=== PATIENT | female | born 1990 | race Caucasian/White ===

== ENCOUNTER → 2024-09-10 | Outpatient (CLI) | payer OTHER, SELFPAY ==
--- NOTE | 2024-09-10 11:51 | NM_ITS ---
NUCLEAR MEDICINE GASTRIC EXAM-WITH (SULFUR COLLOID) CLINICAL: Female, 34 years old. nausea, Sjogren''s disease, gerd -- back pain TECHNIQUE: The patient was orally administered 1 mCi of Tc-sulfur colloid in old. Gamma camera imaging acquisitions at 1-60 minutes post radiopharmaceutical administration was performed. COMPARISON STUDIES : NM - None. CR - Not available for review at this time. CT - Not available for review at this time. MR - Not available for review at this time. US - Not available for review at this time. FINDINGS: There is normal filling and emptying of the stomach. Gastric emptying time with solids: Greater than 60 minutes with less than 50% gastric emptying, which is abnormal. Persistence of radiotracer in the cardia and fundus of the stomach and delayed excretion and transit to the distal stomach (lag time) and into the small bowel. Abnormal gastric emptying curves also demonstrated over the entirety of the exam. Near flat lining of gastric emptying. NM/Gastric Emptying Study IMPRESSION: 1. Markedly delayed gastric emptying. Gastric emptying references: * A normal gastric emptying time (T1/2) is usually between 50 and 90 minutes. T1/2 is the time it takes for half of the food in your stomach to empty. * The lag phase is the delay before activity appears in the bowel. With solid meals, there is normally an initial lag phase during which time little or no gastric emptying is observed. The lag phase represents the time required for the transfer of solid food from the fundus to the antrum and then for the antrum to grind the food into small particles so that it can begin to empty into the duodenum [12]. * Causes of delayed gastric emptying = mechanical obstruction, gastroparesis, neuropathy, neuromuscular disease, autoimmune or connective tissue diseases, certain drugs, and post gastric surgical conditions or idiopathic. Electronically Signed: Lg Johnson MD at 11:57 EDT ,
== END | disposition home or self-care (01) ==
PROVIDERS: Referring Provider Student in an Organized Health Care Education/Training Program; Visit Provider Student in an Organized Health Care Education/Training Program
DX: R11.0 Nausea (principal)
CPT/HCPCS: 78264; A9541

== ENCOUNTER → 2024-10-01 | Outpatient (CLI) | payer OTHER, SELFPAY ==
[2024-10-04 12:08] LABS: Anti-Centromere B Ab <0.2 AI (0.0-0.9); Anti-Chromatin <0.2 AI (0.0-0.9); Anti-Jo <0.2 AI (0.0-0.9); Anti-Scleroderma-70 AB 4.2 AI (0.0-0.9); Anti-dsDNA Ab <1 IU/mL (0-9); RNP Ab 0.2 AI (0.0-0.9); SJOGREN'S Anti-SS-A test 3.2 AI (0.0-0.9); SJOGREN'S Anti-SS-B test < 0.2 AI (0.0-0.9); Smith Ab <0.2 AI (0.0-0.9)
== END | disposition home or self-care (01) ==
LOC: LAB 15:51
PROVIDERS: Referring Provider Student in an Organized Health Care Education/Training Program; Visit Provider Student in an Organized Health Care Education/Training Program
DX: R10.9 Unspecified abdominal pain (principal)
CPT/HCPCS: 36415; 86225; 86235